=== PATIENT | male | born 1995 | race American Indian/Alaskan Native ===

== ENCOUNTER 2019-01-28 16:03 | Emergency (ER) | payer SELFPAY ==
[2019-01-28 16:52] VITALS: BP 127/70
[2019-01-28 17:17] LABS: Basophils % (Auto) 0.1 % (0.0-1.8); Hematocrit 49.2 % (35.5-45.6); Hemoglobin 16.3 gm/dl (11.8-15.2); Mean Corpuscular HGB Conc 33 % (32-34); Mean Corpuscular Volume 90 fl (84-94); Monocytes # (Auto) 0.6 K/mm3 (0.0-0.8); Monocytes % (Auto) 5.8 % (0.0-7.3); Platelet Count 166 K/mm3 (140-440); Red Blood Count 5.47 M/mm3 (3.65-5.03); Red Cell Distribution Width 13.6 % (13.2-15.2)
[2019-01-28] MEDS ORDERED: SODIUM CHLORIDE 0.9% 1000 ML 1,000 ML IV ONE (17:29)
[2019-01-28 17:38] LABS: BUN/Creatinine Ratio 12; Blood Urea Nitrogen 12 mg/dL (9-20); Calcium 9.4 mg/dL (8.4-10.2); Hemolysis Index 32
[2019-01-28] MEDS ORDERED: ONDANSETRON 4 MG/2 ML INJ IV ONE (17:43)
--- NOTE | 2019-01-28 17:45 | Emergency Department Report ---
ED N/V/D HPI - General Chief complaint: Nausea/Vomiting/Diarrhea Stated complaint: VOMITING Time Seen by Provider: 01/28/19 17:43 Source: patient Mode of arrival: Ambulatory Limitations: No Limitations - History of Present Illness Initial comments: 23 yo comes to er with acute onset n/v/d at 0400 this Am. Weak, fatigue, headache. He can not keep anything down. pmh none psh none rx none MD complaint: nausea, vomiting, diarrhea -: Sudden, hour(s) Description of Vomiting: watery Description of Diarrhea: water Associated Abdominal Pain: No Location: diffuse Radiation: none Severity: mild Improves with: none Worsens with: none Associated Symptoms: fever/chills, loss of appetite, nausea/vomiting - Related Data Previous Rx's Medication Instructions Recorded Last Taken Type Ondansetron [Zofran Odt] 4 mg PO Q8HR PRN #10 tab.rapdis 01/28/19 Unknown Rx Allergies Allergy/AdvReac Type Severity Reaction Status Date / Time No Known Allergies Allergy Unverified 01/28/19 16:11 ED Review of Systems ROS: Stated complaint: VOMITING Other details as noted in HPI Comment: All other systems reviewed and negative ED Past Medical Hx - Past Medical History Previous Medical History?: No - Surgical History Past Surgical History?: No - Social History Smoking Status: Never Smoker Substance Use Type: Marijuana - Medications Home Medications: Home Medications Medication Instructions Recorded Confirmed Last Taken Type Ondansetron [Zofran Odt] 4 mg PO Q8HR PRN #10 tab.rapdis 01/28/19 Unknown Rx ED Physical Exam - General Limitations: No Limitations General appearance: alert, in no apparent distress - Head Head exam: Present: atraumatic, normocephalic - Eye Eye exam: Present: normal appearance - ENT ENT exam: Present: mucous membranes moist - Neck Neck exam: Present: normal inspection - Respiratory Respiratory exam: Present: normal lung sounds bilaterally. Absent: respiratory distress - Cardiovascular Cardiovascular Exam: Present: regular rate, normal rhythm. Absent: systolic murmur, diastolic murmur, rubs, gallop - GI/Abdominal GI/Abdominal exam: Present: soft, normal bowel sounds - Rectal Rectal exam: Present: deferred - Extremities Exam Extremities exam: Present: normal inspection - Back Exam Back exam: Present: normal inspection - Neurological Exam Neurological exam: Present: alert, oriented X3 - Psychiatric Psychiatric exam: Present: normal affect, normal mood - Skin Skin exam: Present: warm, dry, intact, normal color. Absent: rash ED Course Vital Signs 01/28/19 16:50 Temperature 99.1 F Pulse Rate 100 H Respiratory 18 Rate Blood Pressure 127/70 O2 Sat by Pulse 98 Oximetry ED Medical Decision Making - Lab Data Result diagrams: 01/28/19 16:57 01/28/19 16:57 - Medical Decision Making Labs 01/28/19 01/28/19 16:57 16:57 WBC 9.5 RBC 5.47 H Hgb 16.3 H Hct 49.2 H MCV 90 MCH 30 MCHC 33 RDW 13.6 Plt Count 166 Lymph % (Auto) 10.0 L [place] % (Auto) 5.8 Eos % (Auto) 0.0 Baso % (Auto) 0.1 Lymph # 1.0 L [place] # 0.6 Eos # 0.0 Baso # 0.0 Seg Neutrophils % 84.1 H Seg Neutrophils # 8.0 H Sodium 139 Potassium 4.0 Chloride 103.2 Carbon Dioxide 23 Anion Gap 17 BUN 12 Creatinine 1.0 Estimated GFR > 60 BUN/Creatinine Ratio 12 Glucose 93 Calcium 9.4 Vital Signs 01/28/19 16:50 Temperature 99.1 F Pulse Rate 100 H Respiratory 18 Rate Blood Pressure 127/70 O2 Sat by Pulse 98 Oximetry pos n/v/d no fever ambulatory labs noted ua pending presentation not consistent with kidney stone INT/NS/zofran given dc home with gastrenteritis and follow up plan of care. - Differential Diagnosis gastroenteritis Critical care attestation.: If time is entered above; I have spent that time in minutes in the direct care of this critically ill patient, excluding procedure time. ED Disposition Clinical Impression: Gastroenteritis Disposition: DC-01 TO HOME OR SELFCARE Is pt being admited?: No Does the pt Need Aspirin: No Condition: Stable Instructions: Gastroenteritis (ED) Additional Instructions: rest hydrate well motrin or tylenol for pain zofran for vomiting follow up with pcp referral below Prescriptions: Ondansetron [Zofran Odt] 4 mg PO Q8HR PRN #10 tab.rapdis PRN Reason: Vomiting Referrals: KERMIT GUZMAN MD [Staff Physician] - 3-5 Days Time of Disposition: 17:55
[2019-01-28 18:06] LABS: Alanine Aminotransferase 47 units/L (7-56); Albumin 4.6 g/dL (3.9-5); Bilirubin,Direct < 0.2 mg/dL (0-0.2)
== END 2019-01-28 18:51 | disposition home or self-care (01) ==
LOC: ED 16:03
DX: K21.9 Gastro-esophageal reflux disease without esophagitis (principal)
CPT/HCPCS: 36415; 80048; 80076; 83690; 85025; 96361; 96365; 99283; J2405; J7030

== ENCOUNTER 2021-06-13 03:53 | Emergency (ER) | payer SELFPAY ==
[2021-06-13 04:17] VITALS: BP 131/82
--- NOTE | 2021-06-13 07:49 | Emergency Department Report ---
<DIPESHHILTON A - Last Filed: 06/13/21 13:00> ED Chest Pain HPI - General Chief Complaint: Chest Pain Stated Complaint: HEART RACING PUI?: No Time Seen by Provider: 06/13/21 07:47 Source: patient Mode of arrival: Ambulatory Limitations: No Limitations - History of Present Illness Initial Comments: Patient is a 25-year-old -[place] male that comes to the emergency room after drinking monsters yesterday and experiencing heart palpitations. He states that he has intermittent palpitations. He continues to have a sharp midsternal chest pain. He states he is never had anything like this before. He also endorses shortness of breath. He denies being immunized for Covid. He den ies any fever or chills. No EKG was done on triage. Patient was not placed on a monitor worker. Patient was seen as part of the screening process and is being dispo to the main ER for cardiac monitoring and work-up by the ER physician. An EKG has been ordered. Have asked the nurses to place the patient on a monitor worker. Vital Signs 06/13/21 04:13 Temperature 97.9 F Pulse Rate 61 Respiratory 16 Rate Blood Pressure 131/82 O2 Sat by Pulse 99 Oximetry MD Complaint: chest pain -: Sudden, days(s) Pain Location: substernal Quality: sharp Consistency: constant, intermittent Worsens With: nothing - Related Data On Oral Contraceptives: No Previous Rx's Medication Instructions Recorded Last Taken Type Ondansetron [Zofran Odt] 4 mg PO Q8HR PRN #10 tab.rapdis 01/28/19 Unknown Rx Allergies Allergy/AdvReac Type Severity Reaction Status Date / Time No Known Allergies Allergy Unverified 01/28/19 16:11 Heart Score - HEART Score History: Slightly suspicious EKG: Normal Age: < 45 Risk factors: No known risk factors Troponin: < normal limit HEART Score: 0 - EKG Read Time Time EKG Completed: 07:49 EKG Read Time: 08:26 - Critical Actions Critical Actions: 0-3 pts:0.9-1.7%risk of adverse cardiac event.Candidate for discharge ED Review of Systems Comment: All other systems reviewed and negative ED Past Medical Hx - Past Medical History Previous Medical History?: No - Surgical History Past Surgical History?: No - Family History Family history: no significant - Social History Smoking Status: Current Every Day Smoker Substance Use Type: Marijuana - Medications Home Medications: Home Medications Medication Instructions Recorded Confirmed Last Taken Type Ondansetron [Zofran Odt] 4 mg PO Q8HR PRN #10 tab.kamleshdis 01/28/19 Unknown Rx ED Physical Exam - General Limitations: No Limitations General appearance: alert, in no apparent distress - Head Head exam: Present: atraumatic, normocephalic - Eye Eye exam: Present: normal appearance - ENT ENT exam: Present: mucous membranes moist - Neck Neck exam: Present: normal inspection - Respiratory Respiratory exam: Present: normal lung sounds bilaterally. Absent: respiratory distress - Cardiovascular Cardiovascular Exam: Present: regular rate, normal rhythm. Absent: systolic murmur, diastolic murmur, rubs, gallop - GI/Abdominal GI/Abdominal exam: Present: soft, normal bowel sounds - Rectal Rectal exam: Present: deferred - Extremities Exam Extremities exam: Present: normal inspection - Back Exam Back exam: Present: normal inspection - Neurological Exam Neurological exam: Present: alert, oriented X3 - Psychiatric Psychiatric exam: Present: normal affect, normal mood - Skin Skin exam: Present: warm, dry, intact, normal color. Absent: rash JOSE score - Jose Score Age > 65: (0) No Aspirin use within the Past 7 Days: (0) No 3 or more CAD Risk Factors: (0) No 2 or more Angina events in past 24 hrs: (0) No Known CAD with more than 50% Stenosis: (0) No Elevated Cardiac Markers: (0) No ST Deviation Greater than 0.5mm: (0) No JOSE Score: 0 ED Medical Decision Making - Lab Data Result diagrams: 06/13/21 10:07 06/13/21 10:07 - EKG Data EKG shows normal: sinus rhythm Rate: normal - EKG Data When compared to previous EKG there are: no significant change Interpretation: no acute changes - Radiology Data Radiology results: report reviewed, image reviewed No acute process - Medical Decision Making Labs 06/13/21 06/13/21 06/13/21 10:07 10:07 10:07 WBC 6.4 RBC 4.79 Hgb 14.2 Hct 43.5 MCV 91 MCH 30 MCHC 33 RDW 13.5 Plt Count 158 Lymph % (Auto) 31.3 [place] % (Auto) 5.6 Eos % (Auto) 3.0 Baso % (Auto) 0.8 Lymph # (Auto) 2.0 [place] # (Auto) 0.4 Eos # (Auto) 0.2 Baso # (Auto) 0.0 Seg Neutrophils % 59.3 Seg Neutrophils # 3.8 PT 13.4 INR 0.92 APTT 26.9 Sodium 141 Potassium 4.1 Chloride 103.1 Carbon Dioxide 29 Anion Gap 13 BUN 15 Creatinine 0.8 Estimated GFR > 60 BUN/Creatinine Ratio 19 Glucose 99 Calcium 8.7 Total Bilirubin 0.20 AST 17 ALT 10 Alkaline Phosphatase 87 Troponin T < 0.010 NT-Pro-B Natriuret Pep 8.19 Total Protein 7.3 Albumin 4.4 Albumin/Globulin Ratio 1.5 Lipase 23 TSH 06/13/21 10:07 WBC RBC Hgb Hct MCV MCH MCHC RDW Plt Count Lymph % (Auto) [place] % (Auto) Eos % (Auto) Baso % (Auto) Lymph # (Auto) [place] # (Auto) Eos # (Auto) Baso # (Auto) Seg Neutrophils % Seg Neutrophils # PT INR APTT Sodium Potassium Chloride Carbon Dioxide Anion Gap BUN Creatinine Estimated GFR BUN/Creatinine Ratio Glucose Calcium Total Bilirubin AST ALT Alkaline Phosphatase Troponin T NT-Pro-B Natriuret Pep Total Protein Albumin Albumin/Globulin Ratio Lipase TSH 1.100 Vital Signs 06/13/21 04:13 Temperature 97.9 F Pulse Rate 61 Respiratory 16 Rate Blood Pressure 131/82 O2 Sat by Pulse 99 Oximetry Labs 06/13/21 06/13/21 06/13/21 10:07 10:07 10:07 WBC 6.4 RBC 4.79 Hgb 14.2 Hct 43.5 MCV 91 MCH 30 MCHC 33 RDW 13.5 Plt Count 158 Lymph % (Auto) 31.3 [place] % (Auto) 5.6 Eos % (Auto) 3.0 Baso % (Auto) 0.8 Lymph # (Auto) 2.0 [place] # (Auto) 0.4 Eos # (Auto) 0.2 Baso # (Auto) 0.0 Seg Neutrophils % 59.3 Seg Neutrophils # 3.8 PT 13.4 INR 0.92 APTT 26.9 Sodium 141 Potassium 4.1 Chloride 103.1 Carbon Dioxide 29 Anion Gap 13 BUN 15 Creatinine 0.8 Estimated GFR > 60 BUN/Creatinine Ratio 19 Glucose 99 Calcium 8.7 Total Bilirubin 0.20 AST 17 ALT 10 Alkaline Phosphatase 87 Troponin T < 0.010 NT-Pro-B Natriuret Pep 8.19 Total Protein 7.3 Albumin 4.4 Albumin/Globulin Ratio 1.5 Lipase 23 TSH 06/13/21 10:07 WBC RBC Hgb Hct MCV MCH MCHC RDW Plt Count Lymph % (Auto) [place] % (Auto) Eos % (Auto) Baso % (Auto) Lymph # (Auto) [place] # (Auto) Eos # (Auto) Baso # (Auto) Seg Neutrophils % Seg Neutrophils # PT INR APTT Sodium Potassium Chloride Carbon Dioxide Anion Gap BUN Creatinine Estimated GFR BUN/Creatinine Ratio Glucose Calcium Total Bilirubin AST ALT Alkaline Phosphatase Troponin T NT-Pro-B Natriuret Pep Total Protein Albumin Albumin/Globulin Ratio Lipase TSH 1.100 Labs noted EKG normal X-ray normal Vital signs remain normal with no tachycardia Patient has been advised not to drink energy drinks. Patient is a [employer] employee and was extremely rude to staff in the ER: Because he had to wait despite having chest pain. Patient being discharged home with discharge plan of care including diet, activity, medications and follow-up. He verbalizes understanding of discharge plan of care - Differential Diagnosis Rule out tachyarrhythmia, hyperthyroidism ED Disposition Clinical Impression: Non-cardiac chest pain, Palpitations, Excessive caffeine intake Disposition: 01 HOME / SELF CARE / HOMELESS Condition: Stable Instructions: Nonspecific Chest Pain, Adult, Nonspecific Chest Pain, Adult, [id number], Palpitations, [id number] Additional Instructions: Abstain from drinking excessive caffeine to prevent recurrence of your palpitations because it seems your heart is very sensitive to caffeine Increase daily fluid to help your hydration Call and schedule follow-up with your primary doctor as needed in 3 to 5 days Please do not hesitate to call or return to emergency room if your symptoms worsen Referrals: KERMIT GUZMAN MD [Primary Care Provider] - 3-5 Days <TEMO ARANDA - Last Filed: 06/13/21 14:16> ED Review of Systems ROS: Stated complaint: HEART RACING Other details as noted in HPI ED Course Vital Signs 06/13/21 04:13 Temperature 97.9 F Pulse Rate 61 Respiratory 16 Rate Blood Pressure 131/82 O2 Sat by Pulse 99 Oximetry ED Medical Decision Making - Lab Data Result diagrams: 06/13/21 10:07 06/13/21 10:07 - EKG Data -: EKG Interpreted by Me EKG shows normal: sinus rhythm (At the rate of 55 bpm) Rate: normal - EKG Data When compared to previous EKG there are: previous EKG unavailable Interpretation: normal EKG 06/13/21 14:14 Normal EKG with normal sinus rhythm at a rate of [address] elevation or depression. - Medical Decision Making After reviewing this patient's labs with his HPI and examined him I believed his symptoms is related to the monster drink that contain lots of caffeine that resulted in palpitation and chest pressure with likely anxiety and panic attack. Patient is pretty unremarkable during my examination and I believe if his cardiac work-up is negative which I presume it was going to be patient will be safely discharged home with warning to stay away from excessive caffeine to prevent recurrent. Patient voiced understanding and agree with the plan. Critical care attestation.: If time is entered above; I have spent that time in minutes in the direct care of this critically ill patient, excluding procedure time. ED Disposition Is pt being admited?: No Does the pt Need Aspirin: No Time of Disposition: 09:49
--- NOTE | 2021-06-13 08:58 | XRay Report ---
CHEST 2 VIEWS INDICATION / CLINICAL INFORMATION: chest pain. COMPARISON: None available. FINDINGS: SUPPORT DEVICES: None. HEART / MEDIASTINUM: No significant abnormality. LUNGS / PLEURA: No significant pulmonary or pleural abnormality. No pneumothorax. ADDITIONAL FINDINGS: No significant additional findings. IMPRESSION: 1. No acute findings. Signer Name: Jr Mckenzie MD Signed: 06/13/2021 8:54 AM Workstation Name: [id number]
[2021-06-13 10:42] LABS: Basophils % (Auto) 0.8 % (0.0-1.8); Eosinophils # (Auto) 0.2 K/mm3 (0.0-0.4); Hematocrit 43.5 % (35.5-45.6); Hemoglobin 14.2 gm/dl (11.8-15.2); Lymphocytes % (Auto) 31.3 % (13.4-35.0); Mean Corpuscular HGB Conc 33 % (32-34); Mean Corpuscular Volume 91 fl (84-94); Monocytes # (Auto) 0.4 K/mm3 (0.0-0.8); Monocytes % (Auto) 5.6 % (0.0-7.3); Platelet Count 158 K/mm3 (140-440); Red Blood Count 4.79 M/mm3 (3.65-5.03); Red Cell Distribution Width 13.5 % (13.2-15.2)
[2021-06-13 10:50] LABS: INR 0.92 (0.87-1.13)
[2021-06-13 10:51] LABS: Partial Thromboplastin Time 26.9 Sec. (24.2-36.6)
[2021-06-13 11:24] LABS: Alanine Aminotransferase 10 units/L (7-56); Albumin 4.4 g/dL (3.9-5); BUN/Creatinine Ratio 19; Blood Urea Nitrogen 15 mg/dL (9-20); Calcium 8.7 mg/dL (8.4-10.2); Hemolysis Index 7
--- NOTE | 2021-06-15 19:58 | Electrocardiograph Report ---
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
== END 2021-06-13 12:27 | disposition home or self-care (01) ==
LOC: ED 03:53
DX: R07.9 Chest pain, unspecified (principal); R00.2 Palpitations; T43.615A Adverse effect of caffeine, initial encounter; F17.200 Nicotine dependence, unspecified, uncomplicated; F10.20 Alcohol dependence, uncomplicated
CPT/HCPCS: 36415; 71046; 80053; 83690; 83880; 84443; 84484; 85025; 85610; 85730; 93005; 99283